=== PATIENT | female | born 1970 | race Caucasian/White ===

== ENCOUNTER 2024-05-08 14:11 | Emergency (ER) | payer SELFPAY ==
[2024-05-08 14:17] VITALS: BP 149/94
[2024-05-08 14:31] LABS: % Basophils 0.6 % (0-2); % Eosinophils 0.2 % (0-6); % Immature Granulocytes 0.2 % (0-0.5); % Lymphocytes 31.7 % (20.5-51.1); % Monocytes 5.4 % (1.7-9.3); % Neutrophils 61.9 % (42.2-75.2); Absolute Basophils 0.1 10^3/uL (0-0.2); Absolute Lymphocytes 2.6 10^3/uL (1.2-3.4); Absolute Monocytes 0.5 10^3/uL (0.1-0.6); Absolute Neutrophils 5.1 10^3/uL (1.4-6.5); Hematocrit 40.6 % (37.0-47.0); Hemoglobin 13.8 g/dL (12.0-16.0); Mean Corpuscular Hgb 31.8 pg (27.0-31.0); Mean Corpuscular Volume 93.5 fL (81.0-99.0); Mean Platelet Volume 8.7 fL (7.4-10.4); Nucleated Red Blood Cells % 0 %; Platelet Count 370 10^3/uL (130-400); Red Blood Cell Count 4.34 10^6/uL (4.20-5.40); Red Cell Dist. Width 13.2 % (11.5-14.5); White Blood Cell Count 8.3 10^3/uL (4.8-10.8)
[2024-05-08 14:43] LABS: HCG, Serum Qualitative Screen Negative
[2024-05-08 14:50] LABS: ALT (SGPT) 21 U/L (0-35); AST (SGOT) 41 U/L (14-36); Albumin 4.9 g/dl (3.5-5.0); Alkaline Phosphatase 120 U/L (38-126); Blood Urea Nitrogen 10 mg/dl (7-17); Calcium 9.3 mg/dl (8.4-10.2); Carbon Dioxide 23 mmol/L (22-30); Chloride 101 mmol/L (98-107); Glucose 107 mg/dl (70-99); Potassium 4.2 mmol/L (3.5-5.1); Sodium 142 mmol/L (135-145); Total Bilirubin 0.6 mg/dl (0.2-1.3); Total Protein 7.9 g/dl (6.3-8.2); eGFR > 60.00
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
[2024-05-08 15:31] LABS: Alcohol 395 mg/dl
[2024-05-08] MEDS: NSS 1000 IV (18:13)
[2024-05-08] MEDS: TORADOL 30 MG IV (18:38)
[2024-05-08 19:00] LABS: Amphetamines Negative (Negative); Barbiturates Negative (Negative); Benzodiazepines Positive (Negative); Buprenorphine Negative (Negative); Cocaine Negative (Negative); Marijuana Positive (Negative); Methadone Negative (Negative); Methamphetamines Negative (Negative); Opiates Negative (Negative); Phencyclidine Negative (Negative); Tricyclic Antidepressants Negative (Negative)
[2024-05-08 19:17] LABS: Fentanyl, Urine Negative (Negative)
[2024-05-08 19:28] VITALS: BP 120/79
[2024-05-08 21:06] VITALS: BMI 22.9
[2024-05-08 22:00] VITALS: BP 166/103
--- NOTE | 2024-05-08 22:12 | EDRN ---
Addendum entered by Josselyn Harvey RN 05/08/24 22:18:
Per provider, BRANDON informed pt. has been accepted at rehab facility. Transport estimated to arrive in 1 hour to take pt. to facility.
Original Note:
Pt.'s family is here, is speaking w/ BRANDON via phone to formulate plan for safe d/c home for pt., w/ appropriate outpatient follow up to be arranged. Pt.'s MSAS score 5, provider aware. If pt. d/c'd home w/ her mother, prescription for benzo. to be
provided as long as pt. has family home to be in control of pt.'s script.
== END 2024-05-08 23:04 ==
LOC: EMR 14:11
PROVIDERS: Nurse Practitioner; EMERGENCY PHYSICIAN Emergency Medicine; FAMILY PHYSICIAN Family Medicine
DX: F10.10 Alcohol abuse, uncomplicated (principal); Y90.8 Blood alcohol level of 240 mg/100 ml or more
CPT/HCPCS: 99285; 96374; 96361; 70450; 71111; 80053; 80306; 80307; 82077; 84703; 85025; 93005

== ENCOUNTER 2024-06-09 20:45 | Emergency (ER) | payer BC, SELFPAY ==
[2024-06-09 20:46] VITALS: BMI 23.7
[2024-06-09 20:50] VITALS: BP 113/93
[2024-06-09 21:00] VITALS: BP 117/91
[2024-06-09] MEDS: ATIVAN 2 MG IV (21:11)
[2024-06-09] MEDS: NSS 1000 IV (21:13)
[2024-06-09 21:46] LABS: % Basophils 0.7 % (0-2); % Eosinophils 2.3 % (0-6); % Immature Granulocytes 0.4 % (0-0.5); % Lymphocytes 57.1 % (20.5-51.1); % Neutrophils 30.5 % (42.2-75.2); Absolute Eosinophils 0.1 10^3/uL (0-0.7); Absolute Lymphocytes 3.2 10^3/uL (1.2-3.4); Absolute Monocytes 0.5 10^3/uL (0.1-0.6); Absolute Neutrophils 1.7 10^3/uL (1.4-6.5); Hematocrit 40.9 % (37.0-47.0); Hemoglobin 14.1 g/dL (12.0-16.0); Mean Corp Hgb Conc. 34.5 g/dL (33.0-37.0); Mean Corpuscular Hgb 32.4 pg (27.0-31.0); Mean Platelet Volume 9.5 fL (7.4-10.4); Nucleated Red Blood Cells % 0 %; Platelet Count 344 10^3/uL (130-400); Red Blood Cell Count 4.35 10^6/uL (4.20-5.40); White Blood Cell Count 5.6 10^3/uL (4.8-10.8)
[2024-06-09 22:00] VITALS: BP 102/79
[2024-06-09 22:01] LABS: INR 1.19; PT 14.9 Sec (11.4-14.6)
[2024-06-09 22:02] LABS: APTT 28.8 Sec (23.4-35.0)
[2024-06-09 22:03] LABS: ALT (SGPT) 26 U/L (0-35); AST (SGOT) 32 U/L (14-36); Acetaminophen < 10 ug/ml (10-30); Albumin 4.4 g/dl (3.5-5.0); Alkaline Phosphatase 78 U/L (38-126); Blood Urea Nitrogen 8 mg/dl (7-17); Calcium 9.4 mg/dl (8.4-10.2); Carbon Dioxide 26 mmol/L (22-30); Chloride 112 mmol/L (98-107); Estimated Creatinine Clearance 96 ml/min; Glucose 93 mg/dl (70-99); Potassium 4.4 mmol/L (3.5-5.1); Salicylate < 1.0 mg/dl (2.0-20.0); Sodium 150 mmol/L (135-145); Total Bilirubin 0.4 mg/dl (0.2-1.3); Total Protein 7.1 g/dl (6.3-8.2); eGFR > 60.00
[2024-06-09 22:10] LABS: HCG, Serum Qualitative Screen Negative
[2024-06-09 22:11] LABS: Glucose - Point of Care 94 mg/dl (70-99)
[2024-06-09 22:12] LABS: Alcohol 346 mg/dl
[2024-06-09 23:06] VITALS: BP 92/74
[2024-06-09 23:30] VITALS: BP 120/84
[2024-06-10] VITALS: BP 108/72
[2024-06-10 00:31] VITALS: BP 106/75
[2024-06-10 00:55] LABS: Amphetamines Negative (Negative); Barbiturates Negative (Negative); Benzodiazepines Positive (Negative); Buprenorphine Negative (Negative); Cocaine Negative (Negative); Marijuana Negative (Negative); Methadone Negative (Negative); Methamphetamines Negative (Negative); Opiates Negative (Negative); Phencyclidine Negative (Negative); Tricyclic Antidepressants Negative (Negative)
[2024-06-10 01:00] VITALS: BP 98/72
[2024-06-10 01:03] LABS: Fentanyl, Urine Negative (Negative)
[2024-06-10 01:30] VITALS: BP 95/73
--- NOTE | 2024-06-10 01:31 | ED.GENMED ---
History of Present Illness
General
Chief Complaint: Alcohol Problem
Source: patient
Exam Limitations: clinical condition
Time Seen by Provider: 06/09/24 21:08
Nursing documentation reviewed up to this point in time: agreed with
History of Present Illness
History of Present Illness:
53-year-old female brought in from EMS after daughter found her intoxicated in her bed. Apparently patient was covered in urine. Patient admits to being recently discharged from the alcohol rehabilitation facility. Patient does not wish any
further alcohol treatment at this time.
Past History
Past History
ED Past Medical History: Other (Trigeminal neuralgia)
ED Past Surgical History: and Orthopedic
Social History
Tobacco: Non-smoker
Alcohol: Chronic alcoholic
Drug: None
Personal: Single
Living: with family
Review of Systems
Review of Systems
Allergies reviewed?: Yes
Other source history: ambulance crew
All Other Systems: Not applicable
Phy Exam
Physical Exam
Physical Exam:
Initial physical exam showed a 53-year-old female disheveled, combative, uncooperative, admitting to alcohol use. Heart was tachycardic. She was agitated. Lungs were clear to auscultation bilaterally. Was moving all 4 extremities. She was
answering questions though selectively. Repeat physical exam, when patient is more coherent to follow
General Physical Exam
General Presentation: well appearing and no apparent distress (At time of second physical exam.)
General Skin: warm and dry
General Habitus: normal
General Mental: alert
General Hydration: appears well hydrated
ENT Exam
ENT Exam: EOMI, pharynx normal, neck supple and normocephalic
Eye Exam
Eye Exam: PERRL, cornea clear and conjunctiva normal
Cardiovascular Exam
Cardiovascular Exam: regular rate/rhythm, no edema, no murmur and normal peripheral pulses
Pulmonary Exam
Pulmonary Exam: lungs clear, no respiratory distress, no rales, no crackles, no rhonchi, no stridor, no wheezing and no cough
Gastrointestinal Exam
Gastrointestinal Exam: normal bowel sounds, non tender, soft, no organomegaly, no pulsatile mass and non distended
Neurological Exam
Neurological Exam: alert, oriented x3, no motor deficits and speech normal
Musculoskeletal Exam
Musculoskeletal Exam: full ROM and no edema
Skin Exam
Skin Exam: normal color, warm/dry, no rash and no petechia
Psychiatric Exam
Psychiatric Exam: normal mood/affect
Scores
Withdrawal Assessment of Alcohol
Withdrawal Assessment Completed?: Not applicable
Course
Orders/Labs/Results
Orders:
Orders
06/09/24 20:59
Lorazepam [Ativan] 2 mg .ROUTE .STK-MED ONE
06/09/24 21:07
Lorazepam [Ativan] 4 mg IV NOW STA
06/09/24 21:08
Electrocardiogram (*1) Stat
Reason for Study: Other
Other Reason for Exam: overdose
Bedside Glucose- Treatment ONCE
Cardiac Monitoring- Treatment ONCE
EKG- Treatment ONCE
Urine Drug Abuse Screen Urgent
Date Specimen was Collected: 06/10/24
Time Specimen was Collected: 00:32
0.9% Sodium Chloride 1000 ml [Nss] 1,000 ml IV BOLUS
Test Result ONCE
06/09/24 21:10
Lorazepam [Ativan] 2 mg IV NOW STA
06/09/24 21:23
Acetaminophen Urgent
Alcohol Urgent
Complete Blood Count/With Diff Urgent
Comprehensive Metabolic Panel Urgent
HCG, Serum Qualitative Screen Urgent
PTT Urgent
Prothrombin Time Urgent
Salicylate Urgent
06/10/24 00:01
CT Head W/o Iv Contrast Urgent
Reason For Exam: AMS
06/10/24 00:32
Fentanyl, Urine Urgent
Abnormal Lab Results
06/09/24 06/10/24
21:23 00:32
MCH 32.4 H pg
(27.0-31.0)
Neutrophils % 30.5 L %
(42.2-75.2)
Lymphocytes % 57.1 H %
(20.5-51.1)
PT 14.9 H Sec
(11.4-14.6)
Sodium 150 H mmol/L
(135-145)
Chloride 112 H mmol/L
(98-107)
Salicylates < 1.0 L mg/dl
(2.0-20.0)
Acetaminophen < 10 L ug/ml
(10-30)
U Benzodiazepines Scrn Positive H
(Negative)
06/09/24 21:23
06/09/24 21:23
Vital Signs
Initial and Last Documented VS:
Initial Vital Signs
Pulse Resp
95 22
06/09/24 20:49 06/09/24 20:49
Last Documented Vital Signs
Pulse Resp BP Pulse Ox
119 19 98/79 95
06/10/24 07:15 06/10/24 07:15 06/10/24 07:15 06/10/24 07:15
*Radiology
Radiology exam reviewed: radiology read reviewed
*Pulse Oximetry
Patient hypoxic: no
*Critical Care Note
Total Time (30-74mins, 75-104mins- exclusive of procedures): Not Applicable
ED Attending Note
-
Portions of this chart may have been created with voice recognition software.� Occasional wrong word or��sound alike� substitutions may have occurred due to the inherent limitations of voice recognition software.
Discharge Plan
Departure
Patient Disposition: Home (Routine Discharge)
Date of Disposition: 06/10/24
Time of Disposition: 01:33
Patient with high blood pressure during this ER visit?: No
Condition: Fair
Discharge Problem:
Alcohol intoxication
Instructions: Alcohol Use Disorder (DC)
Prescriptions:
New
lorazepam [Ativan] 0.5 mg tablet
0.5 mg PO BID PRN (Reason: alcohol withdrawal) Qty: 7 0RF
No Action
ondansetron 8 mg tablet,disintegrating
8 mg PO TID PRN (Reason: nausea and vomiting) Qty: 30 0RF
Referrals:
[facility] [Outside]
[facility] [Outside]
[facility] [Active] -
UNKNOWN - PT DOES,NOT KNOW [Family Provider] -
Activity Restrictions/Additional Instructions:
It was a pleasure meeting you and taking part in your care. We hope for your continued healing and wellness.
Please read discharge instructions in their entirety. However, they are for general education and may not describe your exact diagnosis at discharge. Information on your ER visit and medical conditions were discussed with you along with appropriate
follow up information...
If indicated, please take your medications as instructed and indicated on discharge paperwork.
Please schedule a follow up appointment as directed. Call to schedule an appointment
Please return to the emergency department with ANY change in, persisting, or worsening of symptoms. If any of your symptoms do not improve, or persist, or become more severe within 6-12 hours, please return to the emergency department for further
care.
Please return to the emergency department if you develop a headache, neck pain/stiffness, fever greater than 100.4F, chest pain, shortness of breath, persistent nausea, vomiting, slurred speech, difficulty walking, numbness/tingling, weakness, signs
of infection or any other symptoms that are worrisome to you.
If you have any questions or concerns please do not hesitate to call the Hospital at
Interventions
Interventions:
*Risk Screen - Suicide Last Done: 06/10/24 07:52
*General Assessment Last Done: 06/10/24 07:52
*Neglect/Abuse Screening Last Done: 06/10/24 07:52
ED- Fall Risk Assessment Last Done: 06/09/24 22:29
*ED COVID-19 Vaccine History Last Done: 06/10/24 07:52
*Nursing Disposition Last Done: 06/10/24 07:52
ED- Neurological Assessment Last Done: 06/09/24 22:29
ED-Psychological Assessment Last Done: 06/09/24 22:29
Discharge Date and Time
Discharge Date/Time: 06/10/24 07:53
Print Language: DOMINICAN
[2024-06-10 02:00] VITALS: BP 102/71
[2024-06-10 07:15] VITALS: BP 98/79
== END 2024-06-10 07:53 | disposition home or self-care (01) ==
LOC: EMR 20:45
PROVIDERS: EMERGENCY PHYSICIAN Student in an Organized Health Care Education/Training Program
DX: F10.129 Alcohol abuse with intoxication, unspecified (principal)
CPT/HCPCS: 99285; 96374; 96361; 70450; 80053; 80143; 80179; 80306; 80307; 82077; 82962; 84703; 85025; 85610; 85730; 93005

== ENCOUNTER → 2025-05-16 13:57 | Outpatient (REF) | payer BC, SELFPAY | LOC: WDC 13:57 | PROVIDERS: ATTENDING PHYSICIAN Obstetrics & Gynecology | DX: Z12.31 Encounter for screening mammogram for malignant neoplasm of breast (principal) | CPT/HCPCS: 77063; 77067 ==

== ENCOUNTER → 2025-07-02 10:39 | Outpatient (REF) | payer BC, SELFPAY | LOC: WDC 10:39 | PROVIDERS: ATTENDING PHYSICIAN Obstetrics & Gynecology | DX: R92.8 Other abnormal and inconclusive findings on diagnostic imaging of breast (principal) | CPT/HCPCS: 76642 ==